=== PATIENT | female | born 1930 | race Caucasian/White ===

== ENCOUNTER 2017-02-04 15:10 | Inpatient (IN) | payer MEDICARE, OTHER ==
[2017-02-04] MEDS ORDERED: NS 0.9% 1000 ML* 1,000 ML IV ONE (15:57)
[2017-02-04] MEDS ORDERED: NS 0.9% w/ 20 Meq KCL 1000 ML* 1,000 ML IV SCH (16:00)
[2017-02-04] MEDS ORDERED: NS 0.9% 1000 ML* 1,000 ML IV SCH ×2 (16:15→17:00)
--- NOTE | 2017-02-04 16:15 | ED ---
Tani Smart Anna, scribed for Deric Magallon MD on 02/04/17 at 1525 . GI/ HPI - HPI Summary HPI Summary: Patient is an 86 y/o female BIBA to [facility] presenting with the sudden onset of hematochezia that began at 0100 this morning. The blood was dark in color and was a lot. She has also had SOB. She uses an inhaler sometimes. Denies fever. The patient denies abdominal pain. She does not take blood thinners. Her history is significant for dementia, Alzheimers, CVA, COPD, and [place]. LEVEL 5 CAVEAT - UNABLE TO OBTAIN FULL HISTORY DUE TO HISTORY OF DEMENTIA. - History of Current Complaint Time Seen by Provider: 02/04/17 15:20 Stated Complaint: GI CONSULT COMING FROM [place] Hx Obtained From: Patient, Family/Biosecurity Officer - Accompanied by family, EMS Severity: Moderate Current Severity: Moderate Associated Signs and Symptoms: Positive: Blood w/Stool - Allergy/Home Medications Allergies/Adverse Reactions: Allergies Allergy/AdvReac Type Severity Reaction Status Date / Time No Known Allergies Allergy Verified 08/01/12 13:16 PMH/Surg Hx/FS Hx/Imm Hx Endocrine/Hematology History: Reports: Hx Diabetes Cardiovascular History: Reports: Hx Congestive Heart Failure, Hx Hypertension, Hx Myocardial Infarction, Other Cardiovascular Problems/Disorders - "burised heart" Denies: Hx Pacemaker/ICD Respiratory History: Reports: Hx Chronic Obstructive Pulmonary Disease (COPD) - histiry of CODP GI History: Reports: Hx Gastroesophageal Reflux Disease, Hx Ulcer Sensory History: Denies: Hx Hearing Aid Neurological History: Reports: Hx CVA, Hx Dementia, Hx Transient Ischemic Attacks (TIA), Other Neuro Impairments/Disorders - alzhemers Psychiatric History: Reports: Hx of Violent Episodes Against Others Denies: Hx Panic Disorder - Surgical History Surgery Procedure, Year, and Place: C-SECTIONS - Family History Known Family History: Positive: Diabetes - Hx brother - Social History Occupation: Retired Lives: With Family Alcohol Use: None Substance Use Type: Reports: None Smoking Status (MU): Never Smoked Tobacco Review of Systems - ROS Summary Review of Systems Summary: LEVEL 5 CAVEAT - UNABLE TO OBTAIN FULL HISTORY DUE TO HISTORY OF DEMENTIA. Negative: Fever Positive: Shortness Of Breath Gastrointestinal: Other - Hematochezia Negative: Abdominal Pain All Other Systems Reviewed And Are Negative: No Physical Exam Triage Information Reviewed: Yes Vital Signs On Initial Exam: Temp Pulse Resp BP Pulse Ox 97.8 F 80 18 82/63 99 02/04/17 15:32 02/04/17 15:32 02/04/17 15:32 02/04/17 15:32 02/04/17 15:32 Vital Signs Reviewed: Yes Appearance: Positive: Well-Appearing, No Pain Distress Skin: Positive: Warm, Skin Color Reflects Adequate Perfusion, Dry Head/Face: Positive: Normal Head/Face Inspection Eyes: Positive: EOMI, [place] ENT: Positive: Normal ENT inspection Neck: Positive: Supple, Nontender Respiratory/Lung Sounds: Positive: Clear to Auscultation, Breath Sounds Present Cardiovascular: Positive: RRR Abdomen Description: Positive: Nontender, Soft Bowel Sounds: Positive: Present Musculoskeletal: Positive: Normal, Strength/ROM Intact Neurological: Positive: Sensory/Motor Intact, Other - Dementia Psychiatric: Positive: Affect/Mood Appropriate Diagnostics - Vital Signs Vital Signs Temp Pulse Resp BP Pulse Ox 02/04/17 15:32 97.8 F 80 18 82/63 99 - Laboratory Lab Statement: Any lab studies that have been ordered have been reviewed, and results considered in the medical decision making process. - EKG 1607 Cardiac Rate: NL - 79 bpm EKG Rhythm: Sinus Rhythm ST Segment: Normal EKG Interpretation: QTc prolonged at 508 GIGU Course/Dx - Course Course Of Treatment: NO CRITICAL CARE TIME. Assessment/Plan: ADMIT HOSPITALIST STABLE. - Diagnoses Provider Diagnoses: GI bleed - Physician Notifications Discussed Care Of Patient With: Dr. Gomez (hospitalist) at 1553. Agrees to see patient. Discharge - Discharge Plan Condition: Stable Disposition: ADMITTED TO [facility] Referrals: Nereyda Gallegos MD [Primary Care Provider] - The documentation as recorded by the Tani brown Anna accurately reflects the service I personally performed and the decisions made by me, Deric Magallon MD.
[2017-02-04] MEDS ORDERED: Ondansetron INJ* 2 MG/ML VIAL IV PRN (16:45)
[2017-02-04] MEDS ORDERED: Acetaminophen TAB* 325 MG PO PRN (16:45)
[2017-02-04 16:51] LABS: Hematocrit 31 % (35-47); Hemoglobin 10.2 g/dl (12.0-16.0); Mean Corpuscular HGB Conc 33 g/dl (31-36); Mean Corpuscular Hemoglobin 27 pg (27-31); Mean Corpuscular Volume 82 fL (80-97); Mean Platelet Volume 8 um3 (7.4-10.4); Red Blood Count 3.78 10^6/ul (4.0-5.4); Red Cell Distribution Width 16 % (10.5-15)
[2017-02-04] MEDS ORDERED: Dextrose 50% Syringe 50 ML* 25 GM/50 ML SYRINGE IV PUSH PRN (16:53)
[2017-02-04] MEDS ORDERED: Ciprofloxacin 400MG IVPREMIX(* 400 MG/200 ML BAG IVPB SCH (17:00)
[2017-02-04 17:05] LABS: Albumin 3.8 g/dL (3.2-5.2); BUN/Creatinine Ratio 23.9 (8-20); C Reactive Protein 3.76 mg/L (< 5.00); Calcium 9.2 mg/dL (8.6-10.3); EGFR African American 30.8 (>60); EGFR Non-African American 23.9 (>60); Globulin 3.2 g/dL (2-4); Potassium 3.9 mmol/L (3.5-5.0); Total Bilirubin 0.4 mg/dL (0.2-1.0)
[2017-02-04 17:06] LABS: Troponin I 0.01 ng/mL (<0.04)
[2017-02-04] MEDS ORDERED: Albuterol 2.5 MG/3 ML NEB.SOL* (0.083%) INH PRN (17:06)
--- NOTE | 2017-02-04 17:21 | PN ---
Progress Note - Progress Note Note: Addendum to H&P: Colitis - will additionally treat with ciprofloxacin and flagyl dosed for CrCl< 30. Adjust if kidney fxn improves
[2017-02-04] MEDS: metroNIDAZOLE IV 500 MG/100ML* 500 MG/100 ML BAG IVPB SCH (18:26)
[2017-02-04] MEDS: Insulin LISPRO* 1 UNITS UNIT SUBCUT SCH ×2 (18:32→22:29)
[2017-02-04] MEDS: Mometasone/Formoter 100/5 MDI INH SCH (20:25)
[2017-02-04 20:26] LABS: Urine Bacteria Absent (Absent); Urine Bilirubin Negative (Negative); Urine Glucose Negative (Negative); Urine Nitrite Negative (Negative)
[2017-02-04] MEDS: Atorvastatin* 20 MG TAB PO SCH (21:42)
[2017-02-04] MEDS: Omeprazole CAP* 20 MG PO SCH (21:42)
[2017-02-04] MEDS: Ciprofloxacin 400MG IVPREMIX(* 400 MG/200 ML BAG IVPB SCH (21:43)
[2017-02-04 22:50] LABS: Hematocrit 28 % (35-47); Hemoglobin 9.3 g/dl (12.0-16.0)
[2017-02-05] MEDS: metroNIDAZOLE IV 500 MG/100ML* 500 MG/100 ML BAG IVPB SCH ×3 (00:30→20:50)
--- NOTE | 2017-02-05 00:39 | HP ---
ADMISSION HISTORY AND PHYSICAL: DATE OF ADMISSION: 02/04/17 PRIMARY CARE PROVIDER: Dr. Sheila Watts. HEALTHCARE PROXY: Her daughter, Sheila Christopher. CODE STATUS: Full. CHIEF COMPLAINT: Bright red blood per rectum. SOURCE OF INFORMATION: History obtained from interview with the patient, daughter, and son, review of past medical records. RELIABILITY: Fair. HISTORY OF PRESENT ILLNESS: This is an 86-year-old female with past medical history of systolic heart failure, last known EF 40%; microcytic anemia; hypertension; diabetes; hyperlipidemia; COPD, on home oxygen at night; and history of reported gastric ulcers who had been in her usual state of health for approximately 1 a.m. the night prior to admission, was found out of bed after using the bedside commode by her daughter with stool and blood in the commode as well as on herself and in the bed. The daughter helped the patient get cleaned up. The patient returned in bed and slept well overnight. In the morning, she had her usual breakfast, which was quite substantial and needed to use the bathroom again after her meal. Daughter checked on the patient after bowel movement, found again bright red blood in the toilet as well as stool, potentially some small amount of blood clot. The patient's daughter denies that the patient is reporting any abdominal pain, but did note that the patient indicated her stomach felt unsettled. There was no nausea, vomiting, loss of consciousness, palpitations, or other complaints. There have been no changes in her medications. The patient was brought to [facility] Emergency Department where there was no GI consultation available and therefore transferred to [facility]. The patient had no additional bowel movements since that listed above this morning. When seen by this author, the patient had no complaints. PAST MEDICAL HISTORY: Systolic heart failure, EF 40%; microcytic anemia; TIA verus seizure in April 2016; dementia; bilateral subarachnoid hemorrhages, traumatic, in November 2015; hypertension; diabetes; hyperlipidemia; history of COPD; chronic respiratory failure, on home oxygen 2 L, uses mostly at night; history of gastric ulcers; cataract surgery. MEDICATIONS: Taken per primary care provider list in chart: 1. Advair Diskus 100/50 two puffs twice daily. 2. Albuterol nebulizer p.r.n. 3. AREDS2 soft gel in the morning and in the evening. 4. Aspirin 81 mg daily. 5. Donepezil 23 mg daily at bedtime. 6. Ferrous sulfate 325 mg in the evening. 7. Omeprazole 20 mg twice daily. 8. Simvastatin 40 mg in the evening. 9. Torsemide 20 mg in the morning. 10. Calcium/vitamin D 600/200 twice daily. 11. Glucosamine 1 cap twice daily. 12. Multivitamin 1 gummy twice daily. 13. Aspercreme as needed for knee pain. 14. Maalox/Mylanta 2 teaspoons if needed for "sour stomach." 15. Stool softener, Colace 100 mg as needed for constipation. 16. Robitussin 10 mL as needed for cough or congestion. 17. Cepacol 1 drop as needed for sore throat. 18. Cough drops as needed for cough. ALLERGIES: No known drug allergies. FAMILY HISTORY: Brother with diabetes. SOCIAL HISTORY: No tobacco. Lives with her daughter. REVIEW OF SYSTEMS: As per HPI. Otherwise, all others negative. The patient unable to contribute meaningfully. PHYSICAL EXAMINATION GENERAL: Pleasant, sitting up, interactive, pleasant in no apparent distress. VITAL SIGNS: When seen by this author, 136/69, heart rate 88, respiratory rate 14, 100% on 2 L, T-max in the emergency room 97.8. HEENT: Oropharynx is clear. Moist mucous membranes. Sclerae anicteric. NECK: Non-elevated JVD. No cervical or supraclavicular lymphadenopathy. LUNGS: Decreased breath sounds throughout. Minimal end-expiratory wheeze. HEART: Regular rate and rhythm. No murmurs, rubs, or gallops. ABDOMEN: Soft, nontender, nondistended throughout. Positive bowel sounds. EXTREMITIES: Warm and well perfused without clubbing, cyanosis, or edema. Good peripheral pulses. Good skin turgor. Less than 2-second capillary refill. RECTAL: Exam indicated mostly empty vault with scant amount of brown stool present. NEUROLOGIC: She is alert and oriented to herself, not location or year. She does not remember going to [facility] or taking ambulance to the hospital. Her thought process is tangential, not goal directed. LABORATORY DATA: Labs from [place] reviewed. H and H 11/32, MCV 86, BUN and creatinine 46/2.1. Glucose 67, rechecked here. Fingerstick 101. Lactic acid not checked. CT abdomen and pelvis limited report from [facility] indicates severe wall thickening of the cecum. ASSESSMENT AND PLAN: This is an 86-year-old female, past medical history of gastric ulcers, had 2 episodes of bright red blood per rectum this morning. CT abdomen and pelvis reportedly showing severe wall thickening of the cecum. GI bleed: Discussed with Gastroenterology, who will consult the patient later today. Cecal inflammation, bright red blood concerning for ischemic colitis, particularly right-sided. We will trend serial hemoglobin and hematocrits. Can maintain clear liquid diet. May warrant colonoscopy going forward. No need for __PPI ggt___ at this point. I do not suspect this represents a brisk upper GI bleed. Of note, blood pressure in our computer on presentation noted 82/63, improved to that as indicated above, systolic in the 130s to 160s without administration of any crystalloids. Acute kidney injury: One liter of normal saline. Repeat tomorrow. Systolic heart failure, compensated: Holding diuretics in the setting of GI bleed and acute kidney injury. Type 2 diabetes: Fingersticks and insulin sliding scale q.6 hours. Colitis: Suspect to be etiology of GI bleed as indicated above. Check stool culture. Fluids as indicated above. Chronic obstructive pulmonary disease: Continue home medications and oxygen. DVT prophylaxis: SCDs. Code status: Full. CC: Dr. Sheila Watts* [id number]/[facility] #: [id number] [facility]
--- NOTE | 2017-02-05 01:20 | CONS ---
CONSULTATION REPORT: DATE OF CONSULT: 02/04/17 REASON FOR THE CONSULTATION: Rectal bleeding. NARRATIVE: This is an 86-year-old woman with a history of advanced dementia, TIAs, diabetes, hypertension. She lives with the daughter, who is with her for 24 hours a day. Apparently, she had a normal day yesterday, ate well and felt well, but in the middle of night around 1 in the morning, apparently went to the bathroom, where she had a bloody stool. This was witnessed by the daughter. The stool was somewhat loose. The blood was bright red. The patient described some mild abdominal pain, but felt well enough to go back to bed. She awoke again this morning and had another bloody stool. For this reason, she presented to the [place] emergency room where she was transferred to our hospital. She has had no further bleeding. She apparently described intermittent abdominal pain for quite sometime, but not well localized. She has been eating well. She has had no fevers or chills, but never had bleeding before. She did undergo a CAT scan of the abdomen in [place], [place] for which we do not have the images, but by report demonstrated thickening of the cecum suggesting colitis versus a mass. The patient has never had a colonoscopy. Currently, she is without symptoms. PAST MEDICAL HISTORY: Includes dementia. She had a fall in November 2015 resulting in a subarachnoid hemorrhage. She has hypertension, diabetes, dyslipidemia. She has a history of COPD. ADMISSION MEDICATIONS: Her admission medicines were: 1. Daily aspirin. 2. Aricept. 3. Iron. 4. Lasix. 5. Omeprazole. 6. Simvastatin. 7. Metformin. FAMILY HISTORY: Her daughter mentions that the patient's sister had colon cancer. REVIEW OF SYSTEMS: There is no report of nausea, vomiting, hematemesis, back pain, jaundice. She does describe some shortness of breath, although it is unclear whether it is at her baseline. There has been no recent travels. There is no sick individuals at home. She gets her meals prepared by her daughter or by [employer]. PHYSICAL EXAM: She is a pleasant, though demented woman, unable to give a history, but in no acute distress, describing no pain. Temperature is 98.7, blood pressure is 122/43, heart rate is 83 and regular. She is not pale. She appears clinically euvolemic. Cardiac exam reveals a regular rhythm without murmur. Abdomen is soft. There is no tenderness rebound or guarding. Bowel sounds are hypoactive. There is no bruit. Extremities reveal trace edema, dorsalis pedis pulses are palpable bilaterally. LAB DATA: Data includes a white count of 10.1, hemoglobin 10.2. BUN of 47, creatinine of 1.97 (the patient did have an elevated creatinine in the past). LFTs normal lipase at 40, C-reactive protein of 3.76. IMPRESSION: A elderly woman presenting with 2 episodes of rectal bleeding, a vague history of chronic intermittent abdominal discomfort, and a CT scan showing either inflammatory change of the cecum or mass. The presentation could be consistent with many different etiologies including ischemic injury, less likely infectious neoplastic processes. PLAN: Our plan will be to empirically treat it with antibiotics, we will plan on reviewing the CAT scan with our radiologist to get a better understanding of what the etiology is. I did speak to the family that definitive diagnosis may require a colonoscopy and that certainly would be at a higher complication given her comorbidity and a question of whether she could tolerate a prep to achieve that. We will have further discussions with the family about the recommendations. CC: Dr. [place]da [place], [place]* [id number]/[facility] #: [id number] MTDJody
[2017-02-05 06:54] LABS: Hematocrit 28 % (35-47); Hemoglobin 9.3 g/dl (12.0-16.0); Mean Corpuscular HGB Conc 33 g/dl (31-36); Mean Corpuscular Hemoglobin 27 pg (27-31); Mean Corpuscular Volume 83 fL (80-97); Mean Platelet Volume 8 um3 (7.4-10.4); Red Blood Count 3.43 10^6/ul (4.0-5.4); Red Cell Distribution Width 16 % (10.5-15); White Blood Count 7.9 10^3/ul (3.5-10.8)
[2017-02-05 07:07] LABS: BUN/Creatinine Ratio 24.4 (8-20); Calcium 8.6 mg/dL (8.6-10.3); EGFR Non-African American 27.3 (>60); Magnesium 1.9 mg/dL (1.9-2.7); Potassium 3.6 mmol/L (3.5-5.0)
[2017-02-05] MEDS: Insulin LISPRO* 1 UNITS UNIT SUBCUT SCH ×4 (07:10→20:51)
[2017-02-05] MEDS: Mometasone/Formoter 100/5 MDI INH SCH ×2 (08:16→20:24)
[2017-02-05] MEDS: Donepezil TAB* 5 MG PO SCH (10:14)
[2017-02-05] MEDS: Ferrous Sulfate TAB* 325 MG PO SCH (10:15)
[2017-02-05] MEDS: Omeprazole CAP* 20 MG PO SCH ×2 (10:15→23:04)
[2017-02-05] MEDS: Aspirin EC Low Dose* 81 MG TAB.EC PO SCH (10:16)
[2017-02-05] MEDS ORDERED: Insulin LISPRO* 1 UNITS UNIT SUBCUT SCH (12:00)
[2017-02-05] MEDS: NS 0.9% 1000 ML* 1,000 ML IV SCH (13:48)
[2017-02-05 16:10] LABS: Hematocrit 28 % (35-47); Hemoglobin 8.9 g/dl (12.0-16.0)
--- NOTE | 2017-02-05 16:31 | PN ---
Subjective Date of Service: 02/05/17 Interval History: Anxious to have diet advanced Had BRB in stool 6:30 this AM No pain Objective Active Medications: Acetaminophen (Tylenol Tab*) 650 mg PO Q4H PRN PRN Reason: FEVER/PAIN Albuterol (Ventolin 2.5 Mg/3 Ml Neb.Teresita*) 2.5 mg INH Q4H PRN PRN Reason: SOB/WHEEZING Aspirin (Aspirin Ec Low Dose*) 81 mg PO DAILY [facility] Last Admin: 02/05/17 10:16 Dose: 81 mg Atorvastatin Calcium (Lipitor*) 20 mg PO 2100 [facility] Last Admin: 02/04/17 21:42 Dose: 20 mg Dextrose (D50w Syringe 50 Ml*) 12.5 gm IV PUSH .FOR FS < 60 - SS PRN PRN Reason: FS < 60 Donepezil HCl (Aricept Tab*) 20 mg PO DAILY [facility] Last Admin: 02/05/17 10:14 Dose: 20 mg Ferrous Sulfate (Ferrous Sulfate Tab*) 325 mg PO DAILY [facility] Last Admin: 02/05/17 10:15 Dose: 325 mg Metronidazole/Sodium Chloride (Flagyl 500 Mg Ivpb*) 500 mg in 100 mls @ 100 mls /hr IVPB Q8H [facility] Last Admin: 02/05/17 10:13 Dose: 100 mls/hr Ciprofloxacin/Dextrose (Cipro 400 Mg Ivpremix(*)) 400 mg in 200 mls @ 200 mls/ hr IVPB 1800 [facility] Last Admin: 02/04/17 21:43 Dose: 200 mls/hr Sodium Chloride (Ns 0.9% 1000 Ml*) 1,000 mls @ 100 mls/hr IV PER RATE [facility] Stop: 02/06/17 22:44 Last Admin: 02/05/17 13:48 Dose: 100 mls/hr Insulin Human Lispro (Humalog*) 0 units SUBCUT ACHS [facility] PRN Reason: Protocol Mometasone Furoate/Formoterol Fumar (Dulera 100/5 Mdi*) 1 puff INH BID [facility] Last Admin: 02/05/17 08:16 Dose: 1 puff Omeprazole (Prilosec Cap*) 20 mg PO BID [facility] Last Admin: 02/05/17 10:15 Dose: 20 mg Ondansetron HCl (Zofran Inj*) 4 mg IV Q4H PRN PRN Reason: NAUSEA/VOMITING Vital Signs 02/04/17 02/04/17 02/04/17 16:46 16:47 17:00 Temperature Pulse Rate 82 90 Respiratory Rate Blood Pressure 112/65 125/65 (mmHg) O2 Sat by Pulse 100 99 Oximetry 02/04/17 02/04/17 02/04/17 17:30 18:18 20:29 Temperature 98.7 F Pulse Rate 90 83 83 Respiratory 16 Rate Blood Pressure 111/93 122/43 (mmHg) O2 Sat by Pulse 95 97 97 Oximetry 02/04/17 02/04/17 02/04/17 20:30 21:47 23:07 Temperature Pulse Rate 83 Respiratory 18 18 Rate Blood Pressure (mmHg) O2 Sat by Pulse 97 Oximetry 02/04/17 02/04/17 02/05/17 23:52 23:59 03:15 Temperature 97.8 F 98 F Pulse Rate 82 74 Respiratory 16 16 Rate Blood Pressure 94/45 105/50 106/44 (mmHg) O2 Sat by Pulse 94 96 Oximetry 02/05/17 02/05/17 02/05/17 03:42 08:00 08:19 Temperature 97.7 F 97.3 F Pulse Rate 76 79 68 Respiratory 16 16 14 Rate Blood Pressure 119/47 145/90 (mmHg) O2 Sat by Pulse 95 99 98 Oximetry 02/05/17 11:35 Temperature 98.0 F Pulse Rate 75 Respiratory 16 Rate Blood Pressure 105/51 (mmHg) O2 Sat by Pulse 95 Oximetry Oxygen Devices in Use Now: None Appearance: NAD Eyes: No Scleral Icterus, PERRLA Ears/Nose/Mouth/Throat: NL Teeth, Lips, Gums, Clear Oropharnyx, Mucous Membranes Moist Neck: NL Appearance and Movements; NL JVP, Trachea Midline Respiratory: Symmetrical Chest Expansion and Respiratory Effort, Clear to Auscultation Cardiovascular: RRR Abdominal: NL Sounds; No Tenderness; No Distention, No Hepatosplenomegaly Lymphatic: No Cervical Adenopathy Extremities: No Edema Neurological: - - AOX2 Result Diagrams: 02/05/17 16:02 02/05/17 06:35 Microbiology and Other Data: Microbiology 02/04/17 20:10 Urine Culture - Preliminary Urine Proteus Mirabilis Assess/Plan/Problems-Billing Assessment: 86 yo F h/o dementia, sCHF, HTN, DM2 p/w BRBPR - Patient Problems (1) Lower GI bleed Comment: Cecal inflammation on CT although not visible here yet cipro flagyl appreciate surgery c/s trend H/H in AM (2) DM2 (diabetes mellitus, type 2) Comment: ISS (3) HTN (hypertension) Comment: controlled (4) Acute kidney injury Comment: normal saline and recheck tomorrow (5) DVT prophylaxis Comment: SCDs in setting of bleed
[2017-02-05] MEDS ORDERED: Haloperidol INJ IV/IM* 5 MG/ML AMP ONE (17:50)
[2017-02-05] MEDS: Ciprofloxacin 400MG IVPREMIX(* 400 MG/200 ML BAG IVPB SCH (23:01)
[2017-02-05] MEDS: Atorvastatin* 20 MG TAB PO SCH (23:04)
[2017-02-06] MEDS: metroNIDAZOLE IV 500 MG/100ML* 500 MG/100 ML BAG IVPB SCH ×2 (00:33→09:59)
[2017-02-06] MEDS ORDERED: GuaiFENesin DM* 5 ML UDC PO PRN (04:15)
[2017-02-06] MEDS ORDERED: Benzonatate CAP* 100 MG PO PRN (04:15)
[2017-02-06] MEDS ORDERED: Haloperidol INJ IV/IM* 5 MG/ML AMP IM PRN (04:53)
[2017-02-06 07:11] LABS: Hematocrit 27 % (35-47); Hemoglobin 8.7 g/dl (12.0-16.0); Mean Corpuscular HGB Conc 32 g/dl (31-36); Mean Corpuscular Hemoglobin 27 pg (27-31); Mean Corpuscular Volume 83 fL (80-97); Mean Platelet Volume 8 um3 (7.4-10.4); Red Blood Count 3.24 10^6/ul (4.0-5.4); Red Cell Distribution Width 16 % (10.5-15); White Blood Count 6.5 10^3/ul (3.5-10.8)
[2017-02-06 07:53] LABS: Calcium 8.5 mg/dL (8.6-10.3); EGFR African American 39.7 (>60); EGFR Non-African American 30.9 (>60); Potassium 3.6 mmol/L (3.5-5.0)
[2017-02-06] MEDS: NS 0.9% 1000 ML* 1,000 ML IV SCH (08:12)
[2017-02-06] MEDS ORDERED: NS 0.9% 1000 ML* 1,000 ML IV SCH (08:15)
[2017-02-06 09:02] VITALS: BP 140/63
[2017-02-06] MEDS: Insulin LISPRO* 1 UNITS UNIT SUBCUT SCH ×2 (09:46→12:28)
[2017-02-06] MEDS: Omeprazole CAP* 20 MG PO SCH (10:00)
[2017-02-06] MEDS: Donepezil TAB* 5 MG PO SCH (10:00)
[2017-02-06] MEDS: Ferrous Sulfate TAB* 325 MG PO SCH (10:00)
[2017-02-06] MEDS: Aspirin EC Low Dose* 81 MG TAB.EC PO SCH (10:00)
[2017-02-06] MEDS: Mometasone/Formoter 100/5 MDI INH SCH (10:06)
--- NOTE | 2017-02-07 00:51 | DS ---
DISCHARGE SUMMARY: DATE OF ADMISSION: 02/04/17 DATE OF DISCHARGE: 02/06/17 PRIMARY CARE PROVIDER: Nereyda Gallegos MD PRIMARY DIAGNOSES: 1. Colitis specifically at the cecum. 2. GI bleed. SECONDARY DIAGNOSES: Include: 1. Zbgci-yy-aopolkg renal failure. 2. Compensated systolic heart failure with EF of 40%. 3. History of transient ischemic attacks. 4. History of bilateral subarachnoid hemorrhages that were traumatic in nature. 5. Hypertension. 6. Diabetes. 7. Hyperlipidemia. 8. History of chronic obstructive pulmonary disease, compensated, uses 2 L to sleep at night. 9. History of gastric ulcers. DISCHARGE MEDICATIONS: Include: 1. Simvastatin 40 mg in the evening. 2. Simethicone 125 mg 3 times a day as needed. 3. Omeprazole 20 mg in the morning. 4. Menthol drops 5.4 mg every 4 hours as needed for sore throat. 5. Robitussin DM 10 mg every 6 hours as needed. 6. Glucosamine chondroitin. 7. Vitamin C 1 tab twice daily. 8. Fluticasone salmeterol 100/50 one puff twice daily. 9. Ferrous sulfate 325 mg daily. 10. Donepezil 5 mg in the evening. 11. Docusate 100 mg twice daily. 12. Oyster Calcium 500 mg twice daily. 13. Aspirin 81 mg daily. 14. Metronidazole 500 mg 3 times a day for 7 additional days. 15. Ciprofloxacin 500 mg daily for 7 additional days, dosed for creatinine clearance less than 30. 16. Please note Lasix is being withheld at the time of discharge secondary to [id number] renal failure. Please restart when being necessary. PERTINENT LABORATORY DATA: Hemoglobin on presentation 10.2, decreased to 8.7 on day of discharge, MCV of 83. Creatinine on presentation 1.97, decreased to 1.58 on discharge. BUN on presentation 47, 30 on discharge. Imaging from [place] indicated severe inflammation in the cecum. CONSULTATIONS OBTAINED DURING THE HOSPITAL STAY: Gastroenterology. HISTORY OF PRESENT ILLNESS AND HOSPITAL COURSE: This is an 86-year-old female with past medical history as outlined in the history of present illness on the day of admission including fairly advanced dementia, presented to [facility] with bright red blood per rectum, transferred to [facility] for further evaluation by Gastroenterology. CT imaging performed at their hospital indicated severe inflammation of the cecum. She was seen in the consultation with our gastroenterology service including Dr. Chao, Dr. Neil and Dr. Bullock. The thought was to hold off on colonoscopy and treat with antibiotics. This patient was high risk for intervention. The patient was treated with ciprofloxacin and Flagyl, dosed for her acute kidney injury. She had no further GI bleeding in the 48 hours prior to discharge. She was tolerating a consistent carbohydrate diet. She was anxious to leave. Hospital course was complicated by acute delirium and in the evening required one dose Haldol and the patient became agitated and tried to leave the hospital. Her Lasix was held during the course of the hospital stay secondary to acute-on- chronic renal insufficiency which improved with the administration of crystalloid, hydration. The patient will be discharged to complete additional 7 days of antibiotics. INSTRUCTIONS: At followup, please; 1. Evaluate for resolution of symptoms. She was abdominal pain free. Further bleeding would likely warrant colonoscopy. There was low suspicion for malignancy in the cecum, although a repeat CAT scan could be considered if symptoms continued. 2. Please restart Lasix when deemed appropriate. 3. No other specific labs or vitals that need followup. Reasons to return to the hospital included, but not limited to recurrent or worsening of symptoms including lower GI bleed, lightheadedness, loss of consciousness, near loss of consciousness, shortness of breath, chest pain, fever, chills, night sweats, inability to obtain or tolerate medication or food was discussed with the patient and the family, they acknowledged understanding. This was a complicated hospital stay. Please refer to the complete medical record for further details surrounding hospital stay. TIME SPENT: Greater than 60 minutes were spent on discharge of this patient of which greater than half was spent [id number] with the patient. CC: Dr. Gallegos* [id number]/[facility] #: [id number] [facility]PITALJody
== END 2017-02-06 13:20 | disposition home or self-care (01) | DRG 392 ==
LOC: ED 15:10 → MED 16:45
PROVIDERS: ADMIT Internal Medicine; ATTEND Internal Medicine
DX: K52.9 Noninfective gastroenteritis and colitis, unspecified (principal); N17.9 Acute kidney failure, unspecified; J96.10 Chronic respiratory failure, unspecified whether with hypoxia or hypercapnia; I50.22 Chronic systolic (congestive) heart failure; I13.0 Hypertensive heart and chronic kidney disease with heart failure and stage 1 through stage 4 chronic kidney disease, or unspecified chronic kidney disease; G30.9 Alzheimer's disease, unspecified; F02.80 Dementia in other diseases classified elsewhere, unspecified severity, without behavioral disturbance, psychotic disturbance, mood disturbance, and anxiety; J44.9 Chronic obstructive pulmonary disease, unspecified; Z86.73 Personal history of transient ischemic attack (TIA), and cerebral infarction without residual deficits; I25.2 Old myocardial infarction; K21.9 Gastro-esophageal reflux disease without esophagitis; Z83.3 Family history of diabetes mellitus; E78.5 Hyperlipidemia, unspecified; Z99.81 Dependence on supplemental oxygen; Z98.49 Cataract extraction status, unspecified eye; Z80.0 Family history of malignant neoplasm of digestive organs; N18.9 Chronic kidney disease, unspecified; E11.22 Type 2 diabetes mellitus with diabetic chronic kidney disease; Z79.84 Long term (current) use of oral hypoglycemic drugs; Z79.82 Long term (current) use of aspirin; R41.0 Disorientation, unspecified
CPT/HCPCS: 36415; 80048; 80053; 81003; 81015; 83605; 83690; 83735; 83880; 84484; 85014; 85018; 85025; 85610; 85730; 86140; 86850; 86900; 86901; 87086; 93005; 94640; A9270-GY; J0744; J1630